=== PATIENT | male | born 1990 | race Caucasian/White ===

== ENCOUNTER 2024-06-16 09:13 | Inpatient (IN) | payer OTHER ==
[~2024-06-16] VITALS: Ht 180.3 cm; Wt 79.7 kg
[~2024-06-16 09:13] MED LIST: AMOX-457 PO; DOXY-354 PO; LEVO-72 PO; NALT50TA33 PO; PANT-31 PO; TRAZ-252 PO
[2024-06-16] MEDS ORDERED: FURO40TA5 PO (09:23)
[2024-06-16] MEDS ORDERED: ESCI20TA37 PO (09:23)
[2024-06-16] MEDS ORDERED: LACT10SO9 PO (09:23)
[2024-06-16] MEDS ORDERED: FOLI-130 PO (09:23)
[2024-06-16] MEDS ORDERED: SPIR100T5 PO (09:23)
[2024-06-16 09:45] LABS: EOSINOPHILS % (AUTO) 0.1 % (1.0-6.0); HEMOGLOBIN 12.5 g/dL (13.5-17.5); LYMPHOCYTES # (AUTO) 0.7 K/uL (1.0-4.8); LYMPHOCYTES % (AUTO) 6.2 % (22.0-44.0); MEAN CORPUSCULAR HEMOGLOBIN 32.7 pg (26.0-34.0); MEAN CORPUSCULAR HGB CONC 33.9 G/dL (31.0-37.0); MEAN CORPUSCULAR VOLUME 97 fL (80-100); MONOCYTES # (AUTO) 0.5 K/uL (0.1-1.0); MONOCYTES % (AUTO) 4.7 % (2.0-9.0); NEUTROPHILS # (AUTO) 10.2 K/uL (1.8-7.7); PLATELET COUNT (AUTO) 46 K/uL (150-450); RED BLOOD CELL COUNT(AUTO) 3.83 MIL/uL (4.50-5.90); WHITE BLOOD COUNT (AUTO) 11.5 K/uL (4.5-11.0)
[2024-06-16 09:54] LABS: ANION GAP 14 mmol/L (8-16); CALCIUM, TOTAL 9.2 mg/dL (8.8-10.5); CARBON DIOXIDE 25 mmol/L (22-29); CHLORIDE 91 mmol/L (98-107); CREATININE 0.78 mg/dL (0.60-1.30); GLOMERULAR FILTR. RATE CALC > 60 mL/min (>60); GLUCOSE,RANDOM 105 mg/dL (70-110); SODIUM SERUM 130 mmol/L (136-145); UREA NITROGEN, BLOOD 9 mg/dL (7-18)
[2024-06-16 09:57] LABS: POTASSIUM 2.8 mmol/L (3.5-5.1)
[2024-06-16 10:00] LABS: ALBUMIN 3.7 g/dL (3.4-5.0); BILIRUBIN,DIRECT 5.2 mg/dL (0.00-0.20); BILIRUBIN,TOTAL 8.4 mg/dL (0.1-1.0); TOTAL PROTEIN, SERUM 8.8 g/dL (6.4-8.2)
[2024-06-16 10:05] LABS: LIPASE 467 U/L (16-77)
[2024-06-16 10:06] LABS: RBC MORPHOLOGY COMMENT NORMAL RBC MORPH
[2024-06-16] MEDS: POTASSIUM CHLORIDE 20 MEQ ER TABLET PO ONE (11:02)
[2024-06-16] MEDS: MAGNESIUM SULFATE 2 GM, MVI, ADULT NO.1 WITH VIT K 10 ML, THIAMINE 100 MG, FOLIC ACID 1... IV ONE (11:34)
[2024-06-16] MEDS: SODIUM CHLORIDE 0.9% 1,000 ML IV ONE (12:32)
[2024-06-16] MEDS: ONDANSETRON HCL 4 MG/2 ML VIAL IVP ONE (12:32)
[2024-06-16 17:56] VITALS: BP 125/78; PULSE 100; RESP 19; TEMP 97.9; O2SAT 100
[2024-06-16] MEDS ORDERED: ALBUTEROL SULFATE 2.5 MG/0.5 ML NEB SOLUTION NEB PRN (19:00)
[2024-06-16] MEDS ORDERED: BISACODYL 10 MG RECTAL RECTAL SUPPOSITORY PR PRN (19:00)
[2024-06-16] MEDS ORDERED: POTASSIUM CHL 10 MEQ/WATER 50 ML IV PRN (19:00)
[2024-06-16] MEDS ORDERED: MAGNESIUM SULFATE 4 GM/WATER 100 ML IV PRN (19:00)
[2024-06-16] MEDS ORDERED: IPRATROPIUM BROMIDE 0.5 MG/2.5 ML NEB SOLUTION NEB PRN (19:00)
[2024-06-16] MEDS ORDERED: MAGNESIUM SULFATE 2 GM/WATER 50 ML IV PRN (19:00)
[2024-06-16] MEDS ORDERED: MAGNESIUM HYDROXIDE SUSPENSION 30 ML UDCUP PO PRN (19:00)
[2024-06-16] MEDS ORDERED: MAGNESIUM OXIDE 400 MG TABLET PO PRN (19:00)
[2024-06-16 19:55] VITALS: BP 114/78; PULSE 107; RESP 19; TEMP 98.4; O2SAT 100
[2024-06-16 20:41] VITALS: BP 114/78; PULSE 107; RESP 19; TEMP 98.4; O2SAT 100
[2024-06-16 21:00] VITALS: BP 110/65; PULSE 110; RESP 19; TEMP 98.6; O2SAT 98
[2024-06-16] MEDS: LORazepam 2 MG TABLET PO PRN (21:17)
[2024-06-16] MEDS: SODIUM CHLORIDE 0.9% 1,000 ML IV SCH (21:18)
[2024-06-16 22:00] VITALS: BP 109/61; PULSE 112; RESP 18; TEMP 98.8; O2SAT 97
[2024-06-16] MEDS: POTASSIUM CHLORIDE 20 MEQ ER TABLET PO PRN (22:06)
[2024-06-16 23:00] VITALS: BP 112/72; PULSE 108; RESP 19; TEMP 99; O2SAT 99
[2024-06-17] VITALS (7 sets, daily range): BP systolic 104–112; BP diastolic 45–66; PULSE 100–130; RESP 18–20; TEMP 96.8–99.1; O2SAT 98–100
[2024-06-17 05:00] LABS: APPEARANCE,URINE CLEAR (CLEAR); COLOR,URINE DARK YELLOW (YELLOW); GLUCOSE, URINE (UA) NEGATIVE (NEGATIVE); KETONES,URINE 40-60 mg/dL (NEGATIVE); LEUKOCYTE ESTERASE ,URINE NEGATIVE (NEGATIVE); NITRATE,URINE NEGATIVE (NEGATIVE); OCCULT BLOOD,URINE NEGATIVE (NEGATIVE); PH,URINE 6.5 (5.0-8.0); PROTEIN,URINE 30-70 mg/dL (NEGATIVE); SPECIFIC GRAVITIY, URINE 1.037 (1.003-1.030); UROBILINOGEN,URINE >12.0 mg/dL (<=1.0)
[2024-06-17 05:04] LABS: BILIRUBIN,URINE MODERATE (NEGATIVE)
[2024-06-17 06:09] LABS: BACTERIA,URINE None Seen /HPF (None Seen); RBC,URINE 0-2 /HPF (0-2); SQUAMOUS EPITHELIAL CELL,UR Few /LPF (None Seen); WBC,URINE None Seen /HPF (0-5)
[2024-06-17 06:57] LABS: BASOPHILS % (AUTO) 0.1 % (0.0-2.0); EOSINOPHILS % (AUTO) 0.3 % (1.0-6.0); HEMATOCRIT 26.9 % (41-53); HEMOGLOBIN 9.5 g/dL (13.5-17.5); LYMPHOCYTES # (AUTO) 0.7 K/uL (1.0-4.8); LYMPHOCYTES % (AUTO) 9.5 % (22.0-44.0); MEAN CORPUSCULAR HEMOGLOBIN 33.8 pg (26.0-34.0); MEAN CORPUSCULAR HGB CONC 35.3 G/dL (31.0-37.0); MEAN CORPUSCULAR VOLUME 96 fL (80-100); MONOCYTES # (AUTO) 0.7 K/uL (0.1-1.0); MONOCYTES % (AUTO) 9.4 % (2.0-9.0); NEUTROPHILS # (AUTO) 6.2 K/uL (1.8-7.7); NEUTROPHILS % (AUTO) 80.7 % (40.0-70.0); PLATELET COUNT (AUTO) 33 K/uL (150-450); RED BLOOD CELL COUNT(AUTO) 2.81 MIL/uL (4.50-5.90); RED CELL DISTRIBUTION WIDTH 14.2 % (11.5-14.5); WHITE BLOOD COUNT (AUTO) 7.7 K/uL (4.5-11.0)
[2024-06-17] MEDS ORDERED: LORazepam 2 MG TABLET PO PRN (07:00)
[2024-06-17 07:10] LABS: ALANINE AMINOTRANSFERASE 30 U/L (12-78); ALBUMIN 2.8 g/dL (3.4-5.0); ALKALINE PHOSPHATASE 115 U/L (46-116); ANION GAP 9 mmol/L (8-16); ASPARTATE AMINOTRANSFERASE 58 U/L (15-37); BILIRUBIN,TOTAL 6.6 mg/dL (0.1-1.0); CALCIUM, TOTAL 8.2 mg/dL (8.8-10.5); CARBON DIOXIDE 25 mmol/L (22-29); CHLORIDE 97 mmol/L (98-107); CREATININE 0.52 mg/dL (0.60-1.30); GLOMERULAR FILTR. RATE CALC > 60 mL/min (>60); GLUCOSE,RANDOM 73 mg/dL (70-110); POTASSIUM 3.7 mmol/L (3.5-5.1); SODIUM SERUM 131 mmol/L (136-145); TOTAL PROTEIN, SERUM 6.4 g/dL (6.4-8.2); UREA NITROGEN, BLOOD 6 mg/dL (7-18)
[2024-06-17] MEDS: PANTOPRAZOLE SODIUM 40 MG/VIAL IVP SCH (08:18)
[2024-06-17] MEDS: LORazepam 2 MG TABLET PO SCH (08:18)
[2024-06-17] MEDS: 1: MAGNESIUM SULFATE 2 GM, MVI, ADULT NO.1 WITH VIT K 10 ML, THIAMINE 100 MG, FOLIC ACID IV SCH (09:22)
[2024-06-17] MEDS: ONDANSETRON HCL 4 MG/2 ML VIAL IVP PRN (22:06)
[2024-06-17] MEDS ORDERED: SODIUM CHLORIDE 0.9% 1,000 ML ONE (23:55)
[2024-06-18] VITALS (8 sets, daily range): BP systolic 98–114; BP diastolic 59–68; PULSE 89–114; RESP 16–19; TEMP 98–99; O2SAT 96–100
[2024-06-18 06:09] LABS: BASOPHILS % (AUTO) 0.1 % (0.0-2.0); EOSINOPHILS % (AUTO) 1.1 % (1.0-6.0); HEMATOCRIT 26.7 % (41-53); HEMOGLOBIN 9.5 g/dL (13.5-17.5); LYMPHOCYTES % (AUTO) 15.9 % (22.0-44.0); MEAN CORPUSCULAR HEMOGLOBIN 34.3 pg (26.0-34.0); MEAN CORPUSCULAR HGB CONC 35.4 G/dL (31.0-37.0); MEAN CORPUSCULAR VOLUME 97 fL (80-100); MONOCYTES # (AUTO) 0.8 K/uL (0.1-1.0); MONOCYTES % (AUTO) 12.8 % (2.0-9.0); NEUTROPHILS # (AUTO) 4.6 K/uL (1.8-7.7); NEUTROPHILS % (AUTO) 70.1 % (40.0-70.0); PLATELET COUNT (AUTO) 36 K/uL (150-450); RED BLOOD CELL COUNT(AUTO) 2.76 MIL/uL (4.50-5.90); WHITE BLOOD COUNT (AUTO) 6.5 K/uL (4.5-11.0)
[2024-06-18 06:22] LABS: ALANINE AMINOTRANSFERASE 27 U/L (12-78); ALBUMIN 2.7 g/dL (3.4-5.0); ALKALINE PHOSPHATASE 108 U/L (46-116); ANION GAP 7 mmol/L (8-16); ASPARTATE AMINOTRANSFERASE 51 U/L (15-37); BILIRUBIN,TOTAL 6.7 mg/dL (0.1-1.0); CALCIUM, TOTAL 8.1 mg/dL (8.8-10.5); CARBON DIOXIDE 25 mmol/L (22-29); CHLORIDE 96 mmol/L (98-107); CREATININE 0.53 mg/dL (0.60-1.30); GLOMERULAR FILTR. RATE CALC > 60 mL/min (>60); GLUCOSE,RANDOM 81 mg/dL (70-110); POTASSIUM 3.4 mmol/L (3.5-5.1); SODIUM SERUM 128 mmol/L (136-145); TOTAL PROTEIN, SERUM 6.1 g/dL (6.4-8.2); UREA NITROGEN, BLOOD 6 mg/dL (7-18)
[2024-06-18] MEDS: LACTULOSE 20 GM/30 ML SOLUTION UDCUP PO SCH (13:48)
[2024-06-18] MEDS: DIAZEPAM 5 MG TABLET PO SCH (13:48)
[2024-06-18] MEDS: MORPHINE SULFATE 4 MG/ML SYRINGE IVP PRN (13:49)
[2024-06-18 17:03] LABS: PROTHROMBIN TIME 19.3 SEC (9.4-11.6)
[2024-06-18] MEDS ORDERED: PredniSONE 10 MG TABLET PO SCH (17:30)
[2024-06-18] MEDS: PredniSONE 20 MG TABLET PO SCH (18:29)
[2024-06-19] MEDS: ZOLPIDEM TARTRATE 5 MG TABLET PO PRN (00:43)
[2024-06-19 04:38] VITALS: BP 114/71; PULSE 103; RESP 17; TEMP 98.4; O2SAT 98
[2024-06-19 05:55] LABS: BASOPHILS % (AUTO) 0.1 % (0.0-2.0); EOSINOPHILS % (AUTO) 0.1 % (1.0-6.0); HEMATOCRIT 27.8 % (41-53); HEMOGLOBIN 9.7 g/dL (13.5-17.5); LYMPHOCYTES # (AUTO) 0.5 K/uL (1.0-4.8); LYMPHOCYTES % (AUTO) 9.6 % (22.0-44.0); MEAN CORPUSCULAR HEMOGLOBIN 33.6 pg (26.0-34.0); MEAN CORPUSCULAR VOLUME 96 fL (80-100); MONOCYTES # (AUTO) 0.5 K/uL (0.1-1.0); MONOCYTES % (AUTO) 10.3 % (2.0-9.0); NEUTROPHILS # (AUTO) 3.9 K/uL (1.8-7.7); NEUTROPHILS % (AUTO) 79.9 % (40.0-70.0); PLATELET COUNT (AUTO) 45 K/uL (150-450); RED CELL DISTRIBUTION WIDTH 14.2 % (11.5-14.5); WHITE BLOOD COUNT (AUTO) 4.9 K/uL (4.5-11.0)
[2024-06-19 06:08] LABS: ALANINE AMINOTRANSFERASE 31 U/L (12-78); ALBUMIN 2.9 g/dL (3.4-5.0); ALKALINE PHOSPHATASE 111 U/L (46-116); ANION GAP 7 mmol/L (8-16); ASPARTATE AMINOTRANSFERASE 51 U/L (15-37); BILIRUBIN,TOTAL 5.4 mg/dL (0.1-1.0); CALCIUM, TOTAL 8.7 mg/dL (8.8-10.5); CARBON DIOXIDE 26 mmol/L (22-29); CHLORIDE 99 mmol/L (98-107); CREATININE 0.57 mg/dL (0.60-1.30); GLOMERULAR FILTR. RATE CALC > 60 mL/min (>60); GLUCOSE,RANDOM 114 mg/dL (70-110); POTASSIUM 3.7 mmol/L (3.5-5.1); SODIUM SERUM 132 mmol/L (136-145); TOTAL PROTEIN, SERUM 6.7 g/dL (6.4-8.2)
[2024-06-19 06:14] LABS: UREA NITROGEN, BLOOD 0 mg/dL (7-18)
[2024-06-19] MEDS ORDERED: LORazepam 1 MG TABLET PO PRN (07:00)
[2024-06-19 07:45] VITALS: BP 115/77; PULSE 92; RESP 18; TEMP 98.4; O2SAT 98
[2024-06-19] MEDS: LORazepam 1 MG TABLET PO SCH (09:35)
[2024-06-19] MEDS: METOPROLOL TARTRATE 25 MG TABLET PO SCH (09:39)
[2024-06-19] MEDS ORDERED: PRED-554 PO (10:11)
[2024-06-19] MEDS ORDERED: PANT-31 PO (10:14)
[2024-06-19] MEDS ORDERED: CHLO25CA5 PO (10:20)
[2024-06-20] MEDS ORDERED: LORazepam 1 MG TABLET PO PRN (07:00)
== END 2024-06-19 11:50 | disposition home or self-care (01) | DRG 280 ==
LOC: EMS 09:20 → EDH 14:45 → 6N 17:47 → 5N 19:11 → 5S 06-17 21:57
PROVIDERS: ADMIT Hospitalist; ATTEND Hospitalist
DX: K70.10 Alcoholic hepatitis without ascites (principal); K85.90 Acute pancreatitis without necrosis or infection, unspecified; E43 Unspecified severe protein-calorie malnutrition; K76.6 Portal hypertension; D69.59 Other secondary thrombocytopenia; D64.9 Anemia, unspecified; E87.1 Hypo-osmolality and hyponatremia; F10.239 Alcohol dependence with withdrawal, unspecified; Z88.0 Allergy status to penicillin; K74.60 Unspecified cirrhosis of liver; E87.6 Hypokalemia; Z88.6 Allergy status to analgesic agent; Z68.24 Body mass index [BMI] 24.0-24.9, adult
CPT/HCPCS: 80048; 80053; 80076; 81001; 81003; 82040; 82140; 82271; 83690; 83735; 83935; 84132; 84300; 85025; 85045; 85610; 87040; 96361; 96365; 96375; 99285; J2270; J2405; J2470; J3411; J3475; J3490; J7030; 36415-L1; 36415-TC; J7512; Z7610

== ENCOUNTER 2024-06-23 17:59 | Emergency (ER) | payer OTHER ==
[~2024-06-23] VITALS: Ht 180.3 cm; Wt 81.8 kg
[~2024-06-23 17:59] MED LIST changes: -AMOX-457 PO; -DOXY-354 PO; +ESCI20TA37 PO; +FOLI-130 PO; +LACT10SO9 PO; -LEVO-72 PO; -NALT50TA33 PO; +PRED-554 PO; +SPIR100T5 PO; -TRAZ-252 PO
[2024-06-23 22:30] LABS: BASOPHILS % (AUTO) 0.5 % (0.0-2.0); EOSINOPHILS % (AUTO) 0.5 % (1.0-6.0); HEMATOCRIT 34.3 % (41-53); HEMOGLOBIN 11.5 g/dL (13.5-17.5); LYMPHOCYTES % (AUTO) 7.8 % (22.0-44.0); MEAN CORPUSCULAR HEMOGLOBIN 32.8 pg (26.0-34.0); MEAN CORPUSCULAR HGB CONC 33.6 G/dL (31.0-37.0); MEAN CORPUSCULAR VOLUME 98 fL (80-100); MONOCYTES % (AUTO) 7.4 % (2.0-9.0); NEUTROPHILS # (AUTO) 11.1 K/uL (1.8-7.7); NEUTROPHILS % (AUTO) 83.8 % (40.0-70.0); RED BLOOD CELL COUNT(AUTO) 3.51 MIL/uL (4.50-5.90); RED CELL DISTRIBUTION WIDTH 15.6 % (11.5-14.5); WHITE BLOOD COUNT (AUTO) 13.3 K/uL (4.5-11.0)
[2024-06-23 22:39] LABS: ANION GAP 7 mmol/L (8-16); CALCIUM, TOTAL 9.2 mg/dL (8.8-10.5); CARBON DIOXIDE 28 mmol/L (22-29); CHLORIDE 98 mmol/L (98-107); CREATININE 0.79 mg/dL (0.60-1.30); GLOMERULAR FILTR. RATE CALC > 60 mL/min (>60); GLUCOSE,RANDOM 112 mg/dL (70-110); LIPASE 43 U/L (16-77); POTASSIUM 3.4 mmol/L (3.5-5.1); SODIUM SERUM 133 mmol/L (136-145); UREA NITROGEN, BLOOD 5 mg/dL (7-18)
[2024-06-23 22:45] LABS: ALBUMIN 3.4 g/dL (3.4-5.0); BILIRUBIN,DIRECT 2.4 mg/dL (0.00-0.20); BILIRUBIN,TOTAL 4.1 mg/dL (0.1-1.0); TOTAL PROTEIN, SERUM 7.8 g/dL (6.4-8.2)
[2024-06-23 22:46] LABS: PH,URINE DRUG SCREEN 5.5 (5.0-8.0)
[2024-06-23 22:51] LABS: ALCOHOL, URINE DRUG SCREEN POSITIVE (NEGATIVE); AMPHET/METH SCREEN,URINE NEGATIVE (NEGATIVE); BARBITURATE SCREEN, URINE NEGATIVE (NEGATIVE); BENZODIAZEPINES SCREEN,URINE NEGATIVE (NEGATIVE); CANNABINOID SCREEN,URINE POSITIVE (NEGATIVE); COCAINE SCREEN,URINE NEGATIVE (NEGATIVE); METHADONE SCREEN, URINE NEGATIVE (NEGATIVE); OPIATE SCREEN,URINE NEGATIVE (NEGATIVE); PHENCYCLIDINE SCREEN,URINE NEGATIVE (NEGATIVE)
[2024-06-23 23:03] LABS: PLATELET COUNT (AUTO) 83 K/uL (150-450)
[2024-06-24 01:00] VITALS: TEMP 97.3
[2024-06-24 03:01] VITALS: BP 133/76; PULSE 95; RESP 18; O2SAT 100
== END 2024-06-24 03:01 | disposition home or self-care (01) ==
LOC: EMS 18:01
DX: F10.129 Alcohol abuse with intoxication, unspecified (principal); K70.9 Alcoholic liver disease, unspecified; D69.6 Thrombocytopenia, unspecified; Z79.899 Other long term (current) drug therapy; Y90.9 Presence of alcohol in blood, level not specified
CPT/HCPCS: 99285; 80048; 80076; 83690; 85025; 36415; 93005; 80307; G0480